=== PATIENT | female | born 1975 ===

== ENCOUNTER 2022-08-19 05:45 | Day surgery (SDC) | payer OTHER ==
[2022-08-19] MEDS ORDERED: PEPCID AC20 MG PO (08:53)
== END 2022-08-19 10:20 | disposition home or self-care (01) ==
LOC: AMB-ENDOS 05:45
PROVIDERS: ATTEND Surgery
DX: K21.9 Gastro-esophageal reflux disease without esophagitis (principal); K44.9 Diaphragmatic hernia without obstruction or gangrene; R10.13 Epigastric pain; E66.09 Other obesity due to excess calories